=== PATIENT | female | born 1960 | race Caucasian/White ===

== ENCOUNTER 2017-12-30 13:11 | Outpatient (CLI) | payer OTHER ==
--- NOTE | 2018-01-03 09:30 | CONSULTATION REPORT ---
REFERRING PHYSICIAN: Dr. Cash Rosa CONSULTING PHYSICIAN: Norman Osorio MD Dear Dr. Rosa: HISTORY OF PRESENT ILLNESS: I had the pleasure of seeing your patient, Lisette Sandoval, on follow up. As you recall this is a 57-year-old white woman who has had joint pain since at least 2005. It consists of pain in her hands and feet. There is an hour of morning stiffness and this is in the context of a history of Jaquez's Palsy and a family history which is remarkable interstitial lung disease in her father and her sister. Some testing done on October 18, 2017, revealed a positive SSA- antibody and she presented to my office. She feels the same at present with 60 minutes of morning stiffness. Pain is about 5/10. Review of systems is positive for weakness and fatigue, loss of smell, occasional nose bleeds, some hoarseness, palpitations, and heartburn. She also suffers from chronic back pain. Otherwise, her weight has been stable. She has had no fevers. She has had no skin rashes or photo sensitivity. She has no history of Raynaud's or pleurisy. No numbness or tingling of her extremities and denies depression. PAST MEDICAL HISTORY: 1. Chronic low back pain. 2. Jaquez's Palsy, resolved. 3. Ptosis of left eye. PAST SURGICAL HISTORY: 1. Hysterectomy. 2. Cholecystectomy. 3. Arthroscopy of the knee. 4. Nasal surgery. 5. Right wrist carpal tunnel release. MEDICATIONS: 1. Ibuprofen. 2. Gabapentin. ALLERGIES: She has no known drug allergies. FAMILY HISTORY: Interstitial lung disease in father and sister. REVIEW OF SYSTEMS: As above. PHYSICAL EXAMINATION: VITAL SIGNS: Weight: 222 pounds. P: 83, BP: 120/85, R: 18, T: 98.2. HEENT: Conjunctivae are pink. No stomatitis or glossitis. Ptosis to the left eye is noted. NECK: No cervical nodes. No parotid swelling. LUNGS: Clear with no crackles or wheezing. HEART: Regular rate and rhythm. ABDOMEN: Soft and nontender. VASCULAR: Shows no edema or cyanosis. PERIPHERAL JOINTS: Some tenderness but no synovitis of the hands, wrists, and feet. DIAGNOSTIC STUDIES: I performed some testing on her at her last visit via [facility]. She has a higher titer DAYAN, IgG of 126. HEp-2 cell fluorescence DAYAN of 1:320, SSA- antibody of over 240. Her serological markers are indeterminant for lupus. DISCUSSION: I do not think this lady suffers from fibromyalgia. Her family history and her history of Jaquez's Palsy and her present serological profile is more consistent with a process such as systemic lupus. ASSESSMENT: Systemic lupus. PLAN: 1. I am instituting Plaquenil 200 mg twice a day. We had a little discussion about the benefits and risks of lupus. We will go for at least a 6-month trial. 2. I will see her back in 2 months. Thank you very much for the opportunity to take care of your patients. Best regards, cc: Dr. Cash MUÑOZ
== END 2017-12-30 13:16 | disposition home or self-care (01) ==
LOC: RHEU 13:11
PROVIDERS: ATTEND Internal Medicine
DX: M32.9 Systemic lupus erythematosus, unspecified (principal)
CPT/HCPCS: 99213